=== PATIENT | female | born 1940 | race Caucasian/White ===

== ENCOUNTER 2018-12-13 09:56 | Outpatient (REF) | payer MEDICARE, MEDICAID, SELFPAY ==
[2018-12-13 22:22] LABS: Anion Gap 8.8 mmol/L (3-11); BUN 17 mg/dL (7-18); CO2 28.2 mmol/L (21.0-32.0); CREATININE 0.74 mg/dL (0.55-1.02); Calcium 9.3 mg/dL (8.5-10.1); Calculated LDL 128; Chloride 103 mmol/L (98-107); Cholesterol 210 mg/dL (50-200); Glucose 92 mg/dL (70-100); HDL Cholesterol 63 mg/dL (40-60); Potassium 4.1 mmol/L (3.5-5.1); Sodium 140 mmol/L (136-145); TSH 0.04 uIU/mL (0.358-3.74); Triglyceride 99 mg/dL (30-150)
== END 2018-12-13 10:16 ==
LOC: NCHCN 09:56
PROVIDERS: Visit Provider Family Medicine
DX: E78.1 Pure hyperglyceridemia (principal); E03.9 Hypothyroidism, unspecified
CPT/HCPCS: 80048; 80061; 83721; 84443

== ENCOUNTER 2019-02-06 12:04 | Outpatient (REF) | payer MEDICARE, MEDICAID, SELFPAY ==
[2019-02-06 22:02] LABS: TSH 0.07 uIU/mL (0.36-3.74)
== END 2019-02-06 12:24 ==
LOC: NCHCN 12:04
PROVIDERS: PCP Family Medicine; Visit Provider Family Medicine
DX: E03.9 Hypothyroidism, unspecified (principal)
CPT/HCPCS: 84443

== ENCOUNTER 2019-03-03 11:14 | Outpatient (REF) | payer MEDICARE, MEDICAID, SELFPAY | END 2019-03-03 11:34 | LOC: NCHCN 11:14 | PROVIDERS: PCP Family Medicine; Visit Provider Family Medicine | DX: R30.9 Painful micturition, unspecified (principal) | CPT/HCPCS: 87077; 87086; 87186 ==

== ENCOUNTER 2019-04-24 15:06 | Outpatient (REF) | payer MEDICARE, MEDICAID, SELFPAY ==
[2019-04-24 22:22] LABS: TSH 0.59 uIU/mL (0.36-3.74)
== END 2019-04-24 15:26 ==
LOC: NCHCN 15:06
PROVIDERS: PCP Family Medicine; Visit Provider Family Medicine
DX: E03.9 Hypothyroidism, unspecified (principal)
CPT/HCPCS: 84443

== ENCOUNTER 2020-03-12 10:48 | Outpatient (REF) | payer MEDICARE, MEDICAID, SELFPAY ==
[2020-03-12 21:44] LABS: HCT 46.4 % (36.0-46.0); HGB 14.7 g/dL (11.2-15.7); MCH 27.7 pg (27.0-33.0); MCHC 31.7 % (32.0-36.0); MCV 87.5 fL (80-95); MPV 11.4 fL (8.0-11.0); Platelet Count 209 10^3/uL (130-400); RDW 13.4 % (11.7-14.6); WBC 5.92 10^3/uL (4.4-10.8)
[2020-03-12 22:31] LABS: ALT 30 U/L (14-59); AST 19 U/L (15-37); Albumin 3.9 g/dL (3.4-5.0); Alkaline Phosphatase 70 U/L (46-116); Anion Gap 7.6 mmol/L (3-11); BUN 19 mg/dL (7-18); Bilirubin, Total 0.4 mg/dL (0.2-1.0); CO2 30.4 mmol/L (21.0-32.0); CREATININE 0.66 mg/dL (0.55-1.02); Calcium 9.3 mg/dL (8.5-10.1); Chloride 105 mmol/L (98-107); Glucose 96 mg/dL (74-106); Potassium 4.2 mmol/L (3.5-5.1); Sodium 143 mmol/L (136-145); TSH 2.42 uIU/mL (0.36-3.74); Total Protein 7.3 g/dL (6.4-8.2); Vitamin B12 1396 pg/mL (193-986)
[2020-03-14 09:27] LABS: Vitamin D 25 Total 102.9 ng/ml (30-100)
== END 2020-03-12 11:08 ==
LOC: NCHCN 10:48
PROVIDERS: PCP Family Medicine; Visit Provider Family Medicine
DX: E03.9 Hypothyroidism, unspecified (principal); G62.9 Polyneuropathy, unspecified; E55.9 Vitamin D deficiency, unspecified
CPT/HCPCS: 80053; 82306; 85027; 82607; 84443

== ENCOUNTER 2020-08-09 18:49 | Outpatient (REF) | payer MEDICARE, MEDICAID, SELFPAY ==
[2020-08-12 05:13] LABS: Vitamin D 25 Total 63.9 ng/ml (30-100)
== END 2020-08-09 19:09 ==
LOC: NCHCN 18:49
PROVIDERS: PCP Family Medicine; Visit Provider Family Medicine
DX: E67.3 Hypervitaminosis D (principal)
CPT/HCPCS: 82306

== ENCOUNTER 2020-11-05 12:54 | Outpatient (REF) | payer MEDICARE, MEDICAID, SELFPAY | END 2020-11-05 12:55 | disposition home or self-care (01) | LOC: NCHCN 12:54 | PROVIDERS: PCP Family Medicine; Visit Provider Nurse Practitioner Family | DX: N39.0 Urinary tract infection, site not specified (principal) | CPT/HCPCS: 87077; 87086; 87186 ==

== ENCOUNTER 2020-11-29 14:29 | Outpatient (REF) | payer MEDICARE, MEDICAID, SELFPAY | END 2020-11-29 14:30 | disposition home or self-care (01) | LOC: NCHCN 14:29 | PROVIDERS: PCP Family Medicine; Visit Provider Family Medicine | DX: N39.0 Urinary tract infection, site not specified (principal); R39.89 Other symptoms and signs involving the genitourinary system | CPT/HCPCS: 87077; 87086; 87186 ==

== ENCOUNTER 2021-01-16 15:34 | Outpatient (REF) | payer MEDICARE, MEDICAID, SELFPAY | END 2021-01-16 15:35 | disposition home or self-care (01) | LOC: NCHCN 15:34 | PROVIDERS: PCP Family Medicine; Visit Provider Physician Assistant | DX: N39.0 Urinary tract infection, site not specified (principal); R39.9 Unspecified symptoms and signs involving the genitourinary system | CPT/HCPCS: 87077; 87086; 87186 ==

== ENCOUNTER 2021-04-07 15:43 | Outpatient (REF) | payer MEDICARE, MEDICAID, SELFPAY ==
[2021-04-07 22:24] LABS: Vitamin D 25 Total 56.7 ng/mL (30-100)
== END 2021-04-07 15:44 | disposition home or self-care (01) ==
LOC: NCHCN 15:43
PROVIDERS: PCP Family Medicine; Visit Provider Family Medicine
DX: E03.9 Hypothyroidism, unspecified (principal); E67.3 Hypervitaminosis D; N39.0 Urinary tract infection, site not specified
CPT/HCPCS: 82306; 87077; 84443; 87086; 87186

== ENCOUNTER 2021-07-25 16:34 | Outpatient (REF) | payer MEDICARE, MEDICAID, SELFPAY | END 2021-07-25 16:35 | disposition home or self-care (01) | LOC: NCHCN 16:34 | PROVIDERS: PCP Family Medicine; Visit Provider Nurse Practitioner Family | DX: N39.0 Urinary tract infection, site not specified (principal) | CPT/HCPCS: 87077; 87086; 87186 ==

== ENCOUNTER 2021-12-04 11:45 | Outpatient (REF) | payer MEDICARE, MEDICAID, SELFPAY | END 2021-12-04 11:46 | disposition home or self-care (01) | LOC: NCHCN 11:45 | PROVIDERS: PCP Family Medicine; Visit Provider Nurse Practitioner Family | DX: Z87.440 Personal history of urinary (tract) infections (principal); R82.998 Other abnormal findings in urine | CPT/HCPCS: 87086 ==

== ENCOUNTER 2022-04-23 15:57 | Outpatient (REF) | payer MEDICARE, MEDICAID, SELFPAY ==
[2022-04-23 21:16] LABS: Anion Gap 10.9 mmol/L (3-11); BUN 21 mg/dL (7-18); CO2 25.1 mmol/L (21.0-32.0); CREATININE 0.8 mg/dL (0.55-1.02); Calcium 9.3 mg/dL (8.5-10.1); Chloride 99 mmol/L (98-107); Estimated GFR 74.44 (mL/min/1.73m2); Glucose 86 mg/dL (74-106); Potassium 4.3 mmol/L (3.5-5.1); Sodium 135 mmol/L (136-145); TSH (W/Ref FT4) 14.77 uIU/mL (0.36-3.74)
[2022-04-23 21:32] LABS: Vitamin D 25 Total 45.1 ng/mL (30-100)
[2022-04-23 21:38] LABS: FREE T4 1.06 ng/dL (0.76-1.46)
== END 2022-04-23 15:58 | disposition home or self-care (01) ==
LOC: NCHCN 15:57
PROVIDERS: PCP Family Medicine; Visit Provider Family Medicine
DX: E03.9 Hypothyroidism, unspecified (principal); E67.8 Other specified hyperalimentation
CPT/HCPCS: 80048; 82306; 84439; 84443

== ENCOUNTER 2022-06-30 18:11 | Outpatient (REF) | payer MEDICARE, MEDICAID, SELFPAY ==
[2022-06-30 15:21] LABS: TSH 2.34 uIU/mL (0.36-3.74)
== END 2022-06-30 18:12 | disposition home or self-care (01) ==
LOC: NCHCN 18:11
PROVIDERS: PCP Family Medicine; Visit Provider Family Medicine
DX: E03.9 Hypothyroidism, unspecified (principal)
CPT/HCPCS: 84443

== ENCOUNTER 2022-08-24 16:10 | Outpatient (REF) | payer MEDICARE, MEDICAID, SELFPAY | END 2022-08-24 16:11 | disposition home or self-care (01) | LOC: NCHCN 16:10 | PROVIDERS: PCP Family Medicine; Visit Provider Nurse Practitioner Family | DX: R39.89 Other symptoms and signs involving the genitourinary system (principal); R82.998 Other abnormal findings in urine | CPT/HCPCS: 87077; 87086; 87186 ==

== ENCOUNTER 2023-04-27 15:44 | Outpatient (REF) | payer MEDICARE, MEDICAID, SELFPAY ==
[2023-04-27 21:22] LABS: Anion Gap 6.5 mmol/L (3-11); BUN 21 mg/dL (7-18); CO2 29.5 mmol/L (21.0-32.0); CREATININE 0.9 mg/dL (0.55-1.02); Calcium 9.9 mg/dL (8.5-10.1); Chloride 104 mmol/L (98-107); Estimated GFR 64.23 (mL/min/1.73m2); Glucose 99 mg/dL (74-106); Potassium 4.3 mmol/L (3.5-5.1); Sodium 140 mmol/L (136-145); TSH 0.19 uIU/mL (0.36-3.74)
== END 2023-04-27 15:45 | disposition home or self-care (01) ==
LOC: NCHCN 15:44
PROVIDERS: PCP Family Medicine; Visit Provider Family Medicine
DX: E03.9 Hypothyroidism, unspecified (principal); R82.998 Other abnormal findings in urine; Z87.440 Personal history of urinary (tract) infections
CPT/HCPCS: 80048; 87077; 84443; 87086; 87186

== ENCOUNTER 2023-06-28 15:57 | Outpatient (REF) | payer MEDICARE, MEDICAID, SELFPAY ==
[2023-06-28 22:24] LABS: Bilirubin Negative (Negative); Blood Trace-intact (Negative); Clarity Clear (Clear); Glucose Negative (Negative); Ketones Negative (Negative); Leukocyte Esterase Large (Negative); Nitrite Negative (Negative); Urobilinogen 0.2 mg/dL (Up to 0.2)
[2023-06-28 22:42] LABS: Bacteria Many HPF (Negative); C & S Indicated? Yes; Casts Negative LPF (Negative); Crystals Negative HPF (Negative); Epithelial Cells Rare HPF (Negative); Mucus Negative (Negative); RBC 0-2 HPF (0-2)
== END 2023-06-28 15:58 | disposition home or self-care (01) ==
LOC: NCHCN 15:57
PROVIDERS: PCP Family Medicine; Visit Provider Family Medicine
DX: E03.9 Hypothyroidism, unspecified (principal); R30.0 Dysuria
CPT/HCPCS: 87077; 81003; 81015; 84443; 87086; 87186

== ENCOUNTER 2024-03-24 16:55 | Outpatient (REF) | payer MEDICARE, MEDICAID, SELFPAY ==
[2024-03-24 14:52] LABS: HCT 46.6 % (36.0-46.0); HGB 14.5 g/dL (11.2-15.7); MCH 27.4 pg (27.0-33.0); MCHC 31.1 % (32.0-36.0); MCV 88 fL (80-95); MPV 10.8 fL (8.0-11.0); Platelet Count 214 10^3/uL (130-400); RBC 5.29 10^6/uL (3.93-5.22); RDW-SD 45.1 fL; WBC 8.25 10^3/uL (4.4-10.8)
[2024-03-24 15:32] LABS: ALT 24 U/L (14-59); AST 19 U/L (15-37); Albumin 3.9 g/dL (3.4-5.0); Alkaline Phosphatase 71 U/L (46-116); Anion Gap 9.9 mmol/L (3-11); BUN 21 mg/dL (7-18); Bilirubin, Total 0.62 mg/dL (0.2-1.0); CO2 30.1 mmol/L (21.0-32.0); CREATININE 0.7 mg/dL (0.55-1.02); Calcium 9.2 mg/dL (8.5-10.1); Calculated LDL 137 mg/dL (<100); Chloride 100 mmol/L (98-107); Cholesterol 239 mg/dL (<200); Glucose 77 mg/dL (74-106); HDL Cholesterol 76 mg/dL (40-60); Potassium 4.1 mmol/L (3.5-5.1); Sodium 140 mmol/L (136-145); TSH 1.53 uIU/Ml (0.36-3.74); Total Protein 7.2 g/dL (6.4-8.2); Triglyceride 130 mg/dL (<150); Vitamin D 25 Total 49.9 ng/mL (30-100)
== END 2024-03-24 16:56 | disposition home or self-care (01) ==
LOC: NCHCN 16:55
PROVIDERS: PCP Family Medicine; Visit Provider Family Medicine
DX: E03.9 Hypothyroidism, unspecified (principal); R53.83 Other fatigue; E67.3 Hypervitaminosis D
CPT/HCPCS: 80053; 80061; 82306; 85027; 87077; 84443; 87086; 87186

== ENCOUNTER 2024-10-17 21:24 | Outpatient (REF) | payer MEDICARE, MEDICAID, SELFPAY | END 2024-10-17 21:25 | disposition home or self-care (01) | LOC: NCHCN 21:24 | PROVIDERS: PCP Family Medicine; Visit Provider Family Medicine | DX: R30.0 Dysuria (principal) | CPT/HCPCS: 87077; 87086; 87186 ==

== ENCOUNTER 2025-03-06 15:23 | Outpatient (REF) | payer MEDICARE, MEDICAID, SELFPAY | END 2025-03-06 15:24 | disposition home or self-care (01) | LOC: NCHCN 15:23 | PROVIDERS: PCP Family Medicine; Visit Provider Family Medicine | DX: R30.0 Dysuria (principal); B96.29 Other Escherichia coli [E. coli] as the cause of diseases classified elsewhere; R82.89 Other abnormal findings on cytological and histological examination of urine | CPT/HCPCS: 87077; 87086; 87186 ==

== ENCOUNTER 2025-04-06 13:47 | Outpatient (REF) | payer MEDICARE, MEDICAID, SELFPAY ==
[2025-04-06 14:40] LABS: Glucose Negative (Negative)
[2025-04-06 14:52] LABS: C & S Indicated? No; RBC Negative HPF (0-2)
== END 2025-04-06 13:48 | disposition home or self-care (01) ==
LOC: NCHCN 13:47
PROVIDERS: PCP Family Medicine; Visit Provider Family Medicine
DX: Z09 Encounter for follow-up examination after completed treatment for conditions other than malignant neoplasm (principal); Z87.440 Personal history of urinary (tract) infections
CPT/HCPCS: 81003; 81015

== ENCOUNTER 2025-05-18 16:28 | Outpatient (REF) | payer MEDICARE, MEDICAID, SELFPAY | END 2025-05-18 16:29 | disposition home or self-care (01) | LOC: NCHCN 16:28 | PROVIDERS: PCP Family Medicine; Visit Provider Family Medicine | DX: R39.9 Unspecified symptoms and signs involving the genitourinary system (principal) | CPT/HCPCS: 87086; 87186 ==